=== PATIENT | female | born 1985 | race Caucasian/White ===

== ENCOUNTER 2016-09-05 19:42 | Inpatient (IN) | payer BC, OTHER ==
[2016-09-06] MEDS ORDERED: OBEPIDURAL* 250 ML ONE (04:14)
[2016-09-06 05:43] LABS: Hematocrit 41 % (35-47); Hemoglobin 13.6 g/dl (12.0-16.0); Mean Corpuscular HGB Conc 33 g/dl (31-36); Mean Corpuscular Hemoglobin 29 pg (27-31); Mean Corpuscular Volume 86 fL (80-97); Mean Platelet Volume 11 um3 (7.4-10.4); Red Blood Count 4.74 10^6/ul (4.0-5.4); Red Cell Distribution Width 13 % (10.5-15); White Blood Count 20.2 10^3/ul (3.5-10.8)
[2016-09-06] MEDS ORDERED: Oxytocin in LR* 20 UNITS/1,000 ML BAG IVPB ONE (12:46)
[2016-09-06] MEDS ORDERED: Oxytocin in LR* 20 UNITS/1,000 ML BAG IVPB SCH ×2 (13:00→17:00)
[2016-09-06] MEDS ORDERED: Acetaminophen TAB* 325 MG PO PRN (16:33)
[2016-09-06] MEDS ORDERED: Dibucaine 1% 28.35 GM TUBE PR PRN (16:33)
[2016-09-06] MEDS ORDERED: oxyCODONE/Acetamin 5/325 MG* TAB PO PRN (16:33)
[2016-09-06] MEDS ORDERED: Glycerin ADULT SUPP PR PRN (16:33)
[2016-09-06] MEDS ORDERED: Witch Hazel PAD* JAR TOPICAL PRN (16:33)
[2016-09-06] MEDS: Ibuprofen TAB* 600 MG PO PRN (20:13)
[2016-09-06] MEDS: Docusate CAP* 100 MG PO SCH (20:14)
[2016-09-06] MEDS: Simethicone CHEW TAB* 80 MG PO SCH (22:22)
[2016-09-07] MEDS: Ibuprofen TAB* 600 MG PO PRN ×3 (06:31→18:30)
[2016-09-07 07:41] LABS: Hematocrit 31 % (35-47); Hemoglobin 10.4 g/dl (12.0-16.0); Mean Corpuscular HGB Conc 33 g/dl (31-36); Mean Corpuscular Hemoglobin 29 pg (27-31); Mean Corpuscular Volume 88 fL (80-97); Mean Platelet Volume 10 um3 (7.4-10.4); Red Blood Count 3.58 10^6/ul (4.0-5.4); Red Cell Distribution Width 13 % (10.5-15); White Blood Count 18.9 10^3/ul (3.5-10.8)
[2016-09-07 07:43] LABS: Add Diff/Slide Review? Slide Review Added; Comments Flag Yes
[2016-09-07] MEDS ORDERED: Measles, Mumps,Rubella VACC* 0.5 ML/VIAL SUBCUT ONE (09:00)
[2016-09-07] MEDS: Docusate CAP* 100 MG PO SCH ×3 (09:22→21:04)
[2016-09-08] MEDS: Ibuprofen TAB* 600 MG PO PRN ×2 (00:30→06:29)
[2016-09-08 07:50] VITALS: BP 132/84
[2016-09-08] MEDS: Docusate CAP* 100 MG PO SCH (09:37)
== END 2016-09-08 13:44 | disposition home or self-care (01) | DRG 542 ==
LOC: MCHOBOUT 19:42 → MCHOB 20:20
PROVIDERS: ADMIT Nurse Practitioner; ATTEND Obstetrics & Gynecology
PROC: 10D07Z6 Extraction of Products of Conception, Vacuum, Via Natural or Artificial Opening (ICD-10-PCS; principal; 2016-09-06)
PROC: 10907ZC Drainage of Amniotic Fluid, Therapeutic from Products of Conception, Via Natural or Artificial Opening (ICD-10-PCS; 2016-09-06)
PROC: 0W8NXZZ Division of Female Perineum, External Approach (ICD-10-PCS; 2016-09-06)
PROC: 0DQR0ZZ Repair Anal Sphincter, Open Approach (ICD-10-PCS; 2016-09-06)
DX: O42.02 Full-term premature rupture of membranes, onset of labor within 24 hours of rupture (principal); O70.20 Third degree perineal laceration during delivery, unspecified; O76 Abnormality in fetal heart rate and rhythm complicating labor and delivery; O62.1 Secondary uterine inertia; Z3A.37 37 weeks gestation of pregnancy; Z37.0 Single live birth
CPT/HCPCS: 36415; 85025; 85027; 86850; 86900; 86901; 90707; A9270-GY